=== PATIENT | female | born 1950 ===

== ENCOUNTER 2018-11-16 06:12 | Day surgery (SDC) | payer MEDICARE ==
[2018-11-16] MEDS ORDERED: CEFAZOLIN 100 ML IV ONE (06:28)
[2018-11-16] MEDS ORDERED: METOCLOPRAMIDE HCL 10 MG/2 ML VIAL ONE (07:08)
[2018-11-16] MEDS ORDERED: FENTANYL CITRATE 100 MCG/2 ML AMPUL ONE (07:08)
[2018-11-16] MEDS ORDERED: MIDAZOLAM HCL 2 MG/2 ML VIAL ONE (07:09)
[2018-11-16] MEDS ORDERED: LIDOCAINE-MPF 2% 5 ML VIAL MC ONE (07:19)
[2018-11-16] MEDS ORDERED: IRR NORMAL SALINE IRRIGATION 1,000 ML BOTTLE IR ONE (07:19)
[2018-11-16] MEDS ORDERED: ONDANSETRON 4 MG/2 ML VIAL IV ONE (07:19)
[2018-11-16] MEDS ORDERED: IV LACTATED RINGERS SOLUTION 1,000 ML BAG MC ONE (07:19)
[2018-11-16] MEDS ORDERED: PROPOFOL 200 MG/20 ML BOTTLE IV ONE (07:19)
[2018-11-16] MEDS ORDERED: BUPIVACAINE 0.25% 30 ML VIAL ONE (07:20)
[2018-11-16] MEDS ORDERED: LIDOCAINE HCL 1% 20 ML VIAL ONE (07:23)
[2018-11-16] MEDS ORDERED: POLYMYXIN B SULFATE 500,000 UNITS, BACITRACIN 50,000 UNITS, NORMAL SALINE 20 ML MC ONE ×3 (07:30)
== END 2018-11-16 10:40 | disposition home or self-care (01) ==
LOC: DS 06:12
PROVIDERS: ATTEND Podiatrist Foot & Ankle Surgery
DX: M20.41 Other hammer toe(s) (acquired), right foot (principal); M86.8X7 Other osteomyelitis, ankle and foot; M19.90 Unspecified osteoarthritis, unspecified site; Z98.890 Other specified postprocedural states; Z88.2 Allergy status to sulfonamides; Z79.899 Other long term (current) drug therapy; Z87.891 Personal history of nicotine dependence; F32.9 Major depressive disorder, single episode, unspecified
CPT/HCPCS: 73630; 87070; A4217; A4649; A4663; J0690; J2250; J2405; J2765; J3010; J3490; J7120